=== PATIENT | female | born 1980 | race Caucasian/White ===

== ENCOUNTER 2018-07-11 09:14 | Emergency (ER) | payer OTHER ==
[~2018-07-11] VITALS: Ht 160 cm; Wt 58.1 kg
[2018-07-11] MEDS ORDERED: [UNRECOGNIZED DRUG - OTHER] PO (09:27)
[2018-07-11 09:35] VITALS: BP 110/58
== END 2018-07-11 09:53 | disposition home or self-care (01) ==
LOC: ER 09:14
DX: L53.9 Erythematous condition, unspecified (principal); R23.2 Flushing; T46.7X5A Adverse effect of peripheral vasodilators, initial encounter; Z88.1 Allergy status to other antibiotic agents; Y92.89 Other specified places as the place of occurrence of the external cause